=== PATIENT | male | born 1975 | race Hispanic/Latino ===

== ENCOUNTER 2024-07-27 21:44 | Emergency (ER) | payer BC ==
[~2024-07-27 21:44] MED LIST: EPINEPHrine 1 MG/ML SDV ONE
[2024-07-27] MEDS: EPINEPHrine 1 MG/ML SDV IM ONE (21:44)
[2024-07-27] MEDS ORDERED: Sodium Chloride 0.9% 10 ML Syringe FLUSH PRN (21:50)
[2024-07-27] MEDS: EPINEPHrine 1 MG/ML SDV SUBCUT ONE (21:51)
[2024-07-27 22:00] LABS: BASOPHILS PERCENT AUTO 0.2 % (0.0-1.0); EOSINOPHILS PERCENT AUTO 0.3 % (0.0-6.0); HEMATOCRIT 42.7 % (42.0-52.0); HEMOGLOBIN 14.3 gm/dl (14.0-18.0); IMMATURE GRAN ABSOLUTE AUTO 0.09 K/mm3 (0.00-0.05); IMMATURE GRAN PERCENT AUTO 0.9 % (0.0-0.4); LYMPHOCYTES ABSOLUTE AUTO 7.1 K/mm3 (1.0-4.8); LYMPHOCYTES PERCENT AUTO 73.7 % (24.0-44.0); MEAN CORPUSCULAR HEMOGLOBIN 31.4 pg (28.0-32.0); MEAN CORPUSCULAR HGB CONC 33.5 g/dl (32.0-36.0); MEAN CORPUSCULAR VOLUME 93.6 fl (83.0-99.0); MEAN PLATELET VOLUME 10.6 fl (9.4-12.4); MONOCYTES ABSOLUTE AUTO 0.3 K/mm3 (0.0-0.8); NEUTROPHILS ABSOLUTE AUTO 2.1 K/mm3 (1.8-7.7); NEUTROPHILS PERCENT AUTO 21.9 % (41.0-71.0); PLATELET COUNT,PLT 313 K/mm3 (150-400); RED BLOOD CELL COUNT 4.56 M/mm3 (4.52-5.90); WHITE BLOOD CELL COUNT,WBC 9.63 K/mm3 (3.9-11.3)
[2024-07-27] MEDS: Sodium Chloride 0.9% 1,000 ML IV ONE (22:00)
[2024-07-27] MEDS: diphenhydrAMINE 50 MG/ML SDV IVPUSH ONE (22:08)
[2024-07-27] MEDS: methylPREDNISolone Sodium Succinate 125 MG/2 ML SDV IVPUSH ONE (22:08)
[2024-07-27] MEDS: Racepinephrine 2.25% 0.5 ML Neb Soln NEB ONE (22:09)
[2024-07-27] MEDS: Racepinephrine 2.25% 0.5 ML Neb Soln ONE (22:10)
[2024-07-27] MEDS: Sodium Chloride 0.9% Inhalation Soln 3 ML Neb INH PRN (22:10)
[2024-07-27] MEDS: EPINEPHrine 1 MG/ML SDV ONE (22:14)
[2024-07-27] MEDS ORDERED: Racepinephrine 2.25% 0.5 ML Neb Soln NEB ONE (22:15)
[2024-07-27] MEDS ORDERED: Sodium Chloride 0.9% Inhalation Soln 3 ML Neb INH PRN (22:15)
[2024-07-27 22:22] LABS: A/G RATIO 0.9 (1-2); ALBUMIN 3.6 g/dl (3.4-5.0); ANION GAP 18.2 (5-15); BILIRUBIN TOTAL 0.3 mg/dL (0.2-1.0); CALCIUM 9.1 mg/dL (8.5-10.1); CREATININE 1.2 mg/dL (0.7-1.3); EST CRCL DRUG DOSING (CG) 82.63 mL/min; MAGNESIUM 1.9 mg/dL (1.8-2.4); POTASSIUM,K 3.2 mEq/L (3.5-5.1); PROTEIN TOTAL,TP 7.6 g/dl (6.4-8.2); TSH 2.956 uIU/mL (0.358-3.74)
== END 2024-07-28 03:49 | disposition home or self-care (01) ==
LOC: JD.ED 21:44
DX: T78.2XXA Anaphylactic shock, unspecified, initial encounter (principal); I95.89 Other hypotension; Z88.6 Allergy status to analgesic agent; Z91.013 Allergy to seafood; Z88.0 Allergy status to penicillin
CPT/HCPCS: 36415; 71045; 80053; 83735; 83880; 84443; 84484; 85025; 85379; 93005; 94640; 96361; 96372; 96374; 96375; 99284; A9270; J0171; J1200; J2919; J7030; J3490

== ENCOUNTER 2024-10-19 09:29 | Emergency (ER) | payer BC, OTHER ==
[2024-10-19 10:19] LABS: BASOPHILS PERCENT AUTO 0.2 % (0.0-1.0); EOSINOPHILS ABSOLUTE AUTO 0.1 K/mm3 (0.0-0.4); EOSINOPHILS PERCENT AUTO 0.6 % (0.0-6.0); HEMATOCRIT 43.3 % (42.0-52.0); HEMOGLOBIN 14.3 gm/dl (14.0-18.0); IMMATURE GRAN ABSOLUTE AUTO 0.04 K/mm3 (0.00-0.05); IMMATURE GRAN PERCENT AUTO 0.4 % (0.0-0.4); LYMPHOCYTES ABSOLUTE AUTO 1.2 K/mm3 (1.0-4.8); LYMPHOCYTES PERCENT AUTO 13.2 % (24.0-44.0); MEAN CORPUSCULAR VOLUME 93.9 fl (83.0-99.0); MONOCYTES ABSOLUTE AUTO 0.6 K/mm3 (0.0-0.8); MONOCYTES PERCENT AUTO 6.6 % (0.0-8.0); PLATELET COUNT,PLT 249 K/mm3 (150-400); RED BLOOD CELL COUNT 4.61 M/mm3 (4.52-5.90); WHITE BLOOD CELL COUNT,WBC 8.91 K/mm3 (3.9-11.3)
[2024-10-19 10:42] LABS: A/G RATIO 0.8 (1-2); ALANINE AMINOTRANSFERASE,ALT 41 U/L (16-63); ALBUMIN 3.5 g/dl (3.4-5.0); ALKALINE PHOSPHATASE 106 U/L (46-116); ANION GAP 13.1 (5-15); ASPARTATE AMNIOTRANSFERASE,AST 22 U/L (15-37); BILIRUBIN TOTAL 0.3 mg/dL (0.2-1.0); BLOOD UREA NITROGEN,BUN 14 mg/dL (7-18); BUN/CREATININE RATIO 12.7 (14-18); CALCIUM 9.2 mg/dL (8.5-10.1); CARBON DIOXIDE,CO2 25 mEq/L (21-32); CHLORIDE,CL 107 mEq/L (98-107); CREATININE 1.1 mg/dL (0.7-1.3); ESTIMATED GFR 83 mL/min (>60); GLUCOSE RANDOM 106 mg/dL (70-99); MAGNESIUM 1.7 mg/dL (1.8-2.4); POTASSIUM,K 4.1 mEq/L (3.5-5.1); PROTEIN TOTAL,TP 7.8 g/dl (6.4-8.2); SODIUM,NA 141 mEq/L (136-145)
[2024-10-19] MEDS: predniSONE 20 MG Tab PO ONE (10:47)
[2024-10-19] MEDS: Sodium Chloride 0.9% 10 ML Syringe FLUSH PRN (10:48)
== END 2024-10-19 13:34 | disposition home or self-care (01) ==
LOC: JD.ED 09:29
DX: T78.1XXA Other adverse food reactions, not elsewhere classified, initial encounter (principal); T44.5X1A Poisoning by predominantly beta-adrenoreceptor agonists, accidental (unintentional), initial encounter; Z88.5 Allergy status to narcotic agent; Z88.6 Allergy status to analgesic agent; Z91.013 Allergy to seafood; Z86.16 Personal history of COVID-19; Z79.899 Other long term (current) drug therapy
CPT/HCPCS: 36415; 80053; 83735; 85025; 93005; 99284; J7512; 93010